=== PATIENT | male | born 1990 | race Caucasian/White ===

== ENCOUNTER 2022-02-09 11:48 | Emergency (ER) | payer OTHER, SELFPAY ==
[2022-02-09 11:58] VITALS: BP 141/98; PULSE 112; RESP 16; TEMP 36.9; O2SAT 99
--- NOTE | 2022-02-09 12:13 | ED.ABDPAIN ---
HPI - Abdominal Pain General Chief Complaint: Abdominal Pain Stated Complaint: ABD PAIN Time Seen by Provider: 02/09/22 12:14 Source: patient and RN notes reviewed Mode of arrival: ambulatory Limitations: no limitations History of Present Illness HPI narrative: 31-year-old male presented for complaint of epigastric and mid abdominal pain for at least 2 weeks. He endorses an increase in pain after eating for the last 2 days. He states the pain is intermittent, feels better with standing, usually starts around noon. He has been taking Pepto, Maalox, Nexium, and probiotic for symptoms. He endorses a history of gastric ulcer and states this feels the same. He endorses increased stress lately. He stopped drinking alcohol heavily at the onset of the symptoms. He is also been doing a bland diet. He denies associated nausea, vomiting, diarrhea, hematochezia, melena, fevers or chills. LBM today, states it was normal. He has not been following with a GI specialist or PCP recently. MD elicited complaint: abdominal pain Related Data Allergies Allergy/AdvReac Type Severity Reaction Status Date / Time No Known Allergies Allergy Verified 02/09/22 12:08 Review of Systems Review of Systems: CONSTITUTIONAL: Denies body aches, fever, chills EYES: Denies visual changes ENT: Denies rhinorrhea, congestion CARDIOVASCULAR: Denies chest pain, palpitations, or edema. RESPIRATORY: Denies cough or dyspnea. GASTROINTESTINAL: Endorses abdominal pain, Denies hematochezia, melena, hematemesis nausea, vomiting, diarrhea. GENITOURINARY: Denies dysuria, hematuria, or CVA tenderness. SKIN: Denies rash, itching, or wounds. MUSCULOSKELETAL: Denies back pain, joint pain, or myalgia. NEUROLOGIC: Denies headache, numbness, tingling, or weakness. PSYCH: Denies mood change All systems reviewed & are unremarkable except as noted in HPI and below PMFSH Comments At time of signature, I have reviewed and agree with nursing past medical, surgical, social and family history unless otherwise noted. Please see nursing chart for further information. There is no relevant family history pertinent to the presenting complaint Exam Narrative: GENERAL: Well-appearing HEAD: Normocephalic, atraumatic. EYES: EOMI. Conjunctivae normal. ENT: Mucous membranes pink and moist. NECK: Normal AROM. Supple. No lymphadenopathy. CHEST: No respiratory distress. Clear to auscultation. HEART: Regular rate and rhythm. No murmur appreciated. Normal peripheral pulses. ABDOMEN: Nontender abdomen with deep palpation. No guarding, rebound tenderness, asymmetry; abd soft, nondistended, normal active bowel sounds. MUSCULOSKELETAL: No bony tenderness. EXTREMITIES: Normal range of motion. No edema. SKIN: Warm, dry, no rash. Capillary refill normal. Normal skin turgor. NEURO: No focal deficits. Alert and oriented x3. Gait steady. PSYCH: Normal affect. Course Course Emergency Course: Patient is aware of diagnosis, understands and agrees to treatment plan. Anticipatory guidance given. Patient agrees to follow-up as directed and is aware of reasons to seek care at the emergency department. Portions of this record may have been created with voice recognition software Level of Care: Express Care Visit Vital Signs Vital signs: Vital Signs Temperature 98.5 F 02/09/22 11:58 Pulse Rate 112 H 02/09/22 11:58 Respiratory Rate 16 02/09/22 11:58 Blood Pressure 141/98 H 02/09/22 11:58 Pulse Oximetry 99 02/09/22 11:58 Temperature 98.5 F 02/09/22 11:58 Pulse Rate 112 H 02/09/22 11:58 Respiratory Rate 16 02/09/22 11:58 Blood Pressure 141/98 H 02/09/22 11:58 Pulse Oximetry 99 02/09/22 11:58 MDM - Abdominal Pain MDM Narrative Medical decision making narrative: The patient is advised on signs and symptoms to go to the ER. He is aware of his history of a gastric ulcer, has been utilizing a bland diet and trying to take care of it on his own. He is advised to fol
== END 2022-02-09 12:30 | disposition home or self-care (01) ==
PROVIDERS: Emergency Provider Nurse Practitioner Family
DX: R10.13 Epigastric pain (principal)
CPT/HCPCS: 99203; G0463

== ENCOUNTER 2022-03-27 05:29 | Emergency (ER) | payer OTHER, SELFPAY ==
[2022-03-27 05:46] VITALS: BP 150/99; PULSE 115; RESP 16; TEMP 36.8; O2SAT 95
--- NOTE | 2022-03-27 05:49 | ED.GENADULT ---
HPI - General Adult General Chief complaint: Abdominal Pain Stated complaint: vomiting blood tonight, abd pain x 1 month Time Seen by Provider: 03/27/22 05:31 History of Present Illness HPI narrative: 31-year-old male presenting to the emergency department for evaluation of blood in his emesis this morning. Patient states that he was anxious about going to work this morning and did have some dry heaves. Patient states that he is a violent vomiting. Patient describes the blood as a small amount and streaks in his emesis. Patient states that she often has abdominal pain Patient does state that in December he had been drinking approximately 12 beers a day but has since only been drinking approximately 4 beers a day. Patient also does admit to frequent THC use to help with his anxiety. Patient does have a family history of Crohn's. Patient had a colonoscopy and endoscopy at the age of 17 but has not had follow-up with GI since. Patient states he was diagnosed with ulcers at that time. Patient did have follow-up with urgent care approximately 1 month ago and had been taking omeprazole. Patient states that that prescription ran out and now he is taking Nexium. Patient reports that he did previously have a counselor that he saw but due to COVID she stopped seeing patients and he has not sought out a new counselor. Patient is also in the process of trying to get set up with a primary care physician. Related Data Allergies Allergy/AdvReac Type Severity Reaction Status Date / Time No Known Allergies Allergy Verified 03/27/22 05:54 Review of Systems Review of Systems: CONSTITUTIONAL: Denies fever, chills, or sweats. EYES: Denies visual changes, redness, or discharge. ENT: Denies rhinorrhea, congestion, sore throat, or otalgia. CARDIOVASCULAR: Denies chest pain, palpitations, or edema. RESPIRATORY: Denies cough or dyspnea. GASTROINTESTINAL: Frequent abdominal pain GENITOURINARY: Denies dysuria or hematuria. SKIN: Denies rash or itching. MUSCULOSKELETAL: Denies back pain, joint pain, or myalgia. NEUROLOGIC: Denies headache, numbness, or weakness. PSYCHIATRIC: Anxiety Course Course Emergency Course: Patient was updated on the labs. Patient was encouraged with close follow-up with GI and with a primary care physician. All question concerns were addressed. Patient had no further emesis in the emergency department. Vital Signs Vital signs: Vital Signs Temperature 98.2 F 03/27/22 05:46 Pulse Rate 115 H 03/27/22 05:46 Respiratory Rate 16 03/27/22 05:46 Blood Pressure 150/99 H 03/27/22 05:46 Pulse Oximetry 95 03/27/22 05:46 Oxygen Delivery Room Air 03/27/22 05:46 Temperature 98.2 F 03/27/22 05:46 Pulse Rate 104 H 03/27/22 06:59 Respiratory Rate 16 03/27/22 06:59 Blood Pressure 145/103 H 03/27/22 06:59 Pulse Oximetry 97 03/27/22 06:59 Oxygen Delivery Room Air 03/27/22 05:46 Medical Decision Making Vital Signs Vital Signs: Vital Signs Temperature 98.2 F 03/27/22 05:46 Pulse Rate 115 H 03/27/22 05:46 Respiratory Rate 16 03/27/22 05:46 Blood Pressure 150/99 H 03/27/22 05:46 Pulse Oximetry 95 03/27/22 05:46 Oxygen Delivery Room Air 03/27/22 05:46 Temperature 98.2 F 03/27/22 05:46 Pulse Rate 104 H 03/27/22 06:59 Respiratory Rate 16 03/27/22 06:59 Blood Pressure 145/103 H 03/27/22 06:59 Pulse Oximetry 97 03/27/22 06:59 Oxygen Delivery Room Air 03/27/22 05:46 Lab Data Lab results reviewed: Yes I reviewed the patient's lab results. Result diagrams: 03/27/22 06:02 03/27/22 06:02 Labs: Lab Results 03/27/22 03/27/22 03/27/22 Range/Units 06:02 06:02 06:02 WBC 4.5 (4.5-10.0) K/mm3 RBC 5.37 (4.6-6.20) M/mm3 Hgb 16.8 (14.0-18.0) g/dL Hct 48.2 (42.0-52.0) % MCV 89.8 (80-100) fl MCH 31.3 (26-34) pg MCHC 34.9 (32-36) g/dl RDW 12.6 (11.5-14.5) % Plt Count 190 (150-375) k/mm3 M
[2022-03-27 06:13] LABS: Basophils Absolute Auto 0.1 K/mm3 (0.0-0.1); Basophils Percent Auto 1.1 % (0.2-1.2); Eosinophils Percent Auto 0.9 % (0-4.4); Hematocrit 48.2 % (42.0-52.0); Hemoglobin 16.8 g/dL (14.0-18.0); Immature Granulocyte Absolute 0.03 K/mm3 (0.00-0.031); Immature Granulocyte Percent A 0.7 % (0-0.5); Lymphocytes Absolute Auto 1.33 K/mm3 (0.9-3.2); Lymphocytes Percent Auto 29.4 % (18.3-44.2); Mean Corpuscular HGB Conc 34.9 g/dl (32-36); Mean Corpuscular Hemoglobin 31.3 pg (26-34); Mean Corpuscular Volume 89.8 fl (80-100); Mean Platelet Volume 10.1 fl (7.4-10.4); Monocytes Absolute Auto 0.4 K/mm3 (0.1-0.6); Monocytes Percent Auto 9.5 % (2.6-8.5); Neutrophils Absolute Auto 2.6 K/mm3 (1.3-6.7); Neutrophils Percent Auto 58.4 % (45.5-73.1); Platelet Count Result 190 k/mm3 (150-375); Red Blood Count 5.37 M/mm3 (4.6-6.20); Red Cell Distribution Width 12.6 % (11.5-14.5); White Blood Count 4.5 K/mm3 (4.5-10.0)
[2022-03-27] MEDS: SODIUM CHLORIDE 0.9% IV 1,000 ML 999 ML IV CONT (06:13)
[2022-03-27 06:23] LABS: Prothrombin Time 13.1 Seconds (11.1-14.7)
[2022-03-27 06:24] LABS: Partial Thromboplastin Time 28.3 SECONDS (22.3-36.8)
[2022-03-27 06:25] LABS: Alanine Aminotransferase 53 U/L (6-50); Albumin Level 4.9 g/dL (3.5-5.1); Alkaline Phosphatase 77 U/L (38-126); Anion Gap 12 mmol/L (8-16); Aspartate Amino Transferase 51 U/L (17-59); Bilirubin,Total 0.6 mg/dL (0.2-1.3); Blood Urea Nitrogen 6 mg/dL (9-20); Calcium 8.7 mg/dL (8.4-10.2); Carbon Dioxide 23 mmol/L (22-30); Chloride 105 mmol/L (98-107); Estimated CRCL calculation 122 ml/min; Estimated Glomerular Filt Rate > 60; Glucose 126 mg/dL (65-110); Lipase 282 U/L (23-300); Potassium 3.9 mmol/L (3.4-5.0); Sodium 140 mmol/L (137-145)
[2022-03-27 06:48] VITALS: PULSE 109; RESP 16; O2SAT 95
[2022-03-27 06:59] VITALS: BP 145/103; PULSE 104; RESP 16; O2SAT 97
== END 2022-03-27 07:10 | disposition home or self-care (01) ==
PROVIDERS: Emergency Provider Emergency Medicine
DX: K92.0 Hematemesis (principal)
CPT/HCPCS: 36415; 80053; 83690; 85025; 85610; 85730; 96360; 99283; J7030

== ENCOUNTER → 2022-04-26 09:41 | Outpatient (CLI) | payer OTHER, SELFPAY ==
--- NOTE | ~2022-04-26 | US_ITS ---
EXAMINATION: US abdomen complete DATE: 04/26/2022 10:14 INDICATION: Abdominal pain TECHNIQUE: Multiple grayscale and Doppler ultrasound images of the abdomen were obtained. COMPARISON: None FINDINGS: Normal spleen measuring 12.7 cm in maximal length. There is normal renal contour and echogenicity emile aterally. The right kidney measures 10.2 x 6.3 x 6.1 cm and the left 11.9 x 5.7 x 4.8 cm. There are no focal renal lesions identified. There is no hydronephrosis. The proximal aorta is obscured. The m id to distal aorta is normal. The small visualized portion of the proximal inferior vena cava is norm al. Liver has normal contour, with a smooth surface. There is increased parenchymal echogenicity and coarsened echotexture consistent with diffuse hepatic steatosis. No liver lesion identified. No intr ahepatic biliary duct dilation suspected. Portal venous flow was seen in the hepatopetal, normal dire ction and has normal Doppler waveform. The gallbladder is normal in appearance. There is no cholelit hiasis. The common bile duct measures 5 mm, which is normal. Sonographic Wells sign was reported as negative by the pull over machine operator. IMPRESSION: 1. Diffuse hepatic steatosis. Otherwise normal abdominal ultrasound. Reviewed, dictated and finalized at location A.
== END ==
PROVIDERS: PCP Emergency Medicine; Visit Provider Emergency Medicine
DX: R10.9 Unspecified abdominal pain (principal); K21.9 Gastro-esophageal reflux disease without esophagitis; K76.0 Fatty (change of) liver, not elsewhere classified
CPT/HCPCS: 76700